=== PATIENT | male | born 1965 | race American Indian/Alaskan Native ===

== ENCOUNTER 2019-01-13 09:49 | Emergency (ER) | payer MEDICARE ==
--- NOTE | 2019-01-13 10:15 | Emergency Department Report ---
ED Back Pain/Injury HPI - General Chief Complaint: Extremity Injury, Lower Stated Complaint: (L) LEG PAIN Time Seen by Provider: 01/13/19 10:08 Source: patient Limitations: No Limitations - History of Present Illness Initial Comments: low back pain, chronic now with tingling in L leg no numbness/weakness no bowel or bladder dysfunction no fevers Complaint: back pain -: Gradual, days(s) (2) Place: home Radiation: left leg Severity: moderate Severity scale (0 -10): 6 Quality: burning, aching Consistency: constant Improves With: immobilization Worsens With: movement Associated Symptoms: denies other symptoms - Related Data Allergies Allergy/AdvReac Type Severity Reaction Status Date / Time No Known Allergies Allergy Unverified 01/13/19 09:49 ED Review of Systems ROS: Stated complaint: (L) LEG PAIN Other details as noted in HPI Comment: All other systems reviewed and negative Musculoskeletal: back pain ED Past Medical Hx - Past Medical History liver transplant ED Back Pain Physical Exam - Exam General: Vital signs noted. No distress. Alert and acting appropriately. Back/Abdomen: Yes Perilumbar Tenderness, Yes Straight Leg Raise Pain (L), No Abdominal Tenderness, No Perithoracic Tenderness, No Sacroiliac Tenderness, No Flank Tenderness Neuro: Yes Normal Sensation, Yes Normal DTR's, Yes Normal Gait, No Motor Weakness ED Course Vital Signs 01/13/19 09:53 Temperature 97.5 F L Pulse Rate 85 Respiratory 18 Rate Blood Pressure 139/90 [Left] O2 Sat by Pulse 99 Oximetry ED Medical Decision Making - Medical Decision Making exam c/w sciatica no sign cord compression no suspicion for infectious source RX: Medrol, Naprosyn, Flexeril - Differential Diagnosis strain, sciatica, unlikely fx Critical care attestation.: If time is entered above; I have spent that time in minutes in the direct care of this critically ill patient, excluding procedure time. ED Disposition Clinical Impression: Left sciatic nerve pain Disposition: - TO HOME OR SELFCARE Is pt being admited?: No Condition: Good Instructions: Lumbar Radiculopathy (ED) Referrals: NAYELY RM MD [Staff Physician] - 3-5 Days Time of Disposition: 10:26
== END 2019-01-13 10:30 | disposition home or self-care (01) ==
LOC: ED 09:49
DX: M54.32 Sciatica, left side (principal)
CPT/HCPCS: 99282

== ENCOUNTER 2019-11-07 09:48 | Emergency (ER) | payer MEDICARE ==
[2019-11-07 09:55] VITALS: BP 130/86
[2019-11-07] MEDS ORDERED: HYDROcodone/ACETAMINOPHEN 5-325 MG TAB PO ONE (11:13)
--- NOTE | 2019-11-07 11:13 | Emergency Department Report ---
- General Chief complaint: Skin Rash Stated complaint: RT SIDE RASH Time Seen by Provider: 11/07/19 10:55 Source: patient Mode of arrival: Ambulatory Limitations: No Limitations - History of Present Illness Initial comments: 54-year-old -[place] female patient complains of painful right abdominal rash 4 days. Patient denies any fever/chills/sweats or spreading of rash to other areas. He describes the pain as burning and itching. He admits to having chickenpox as a child. He rates his pain as a 10/10 in severity and states it worsens with palpation -: Sudden Tetanus Up to Date: yes Severity: severe Severity scale (0 -10): 10 Quality: burning Improves with: none Worsens with: palpation Associated symptoms: denies other symptoms Treatments Prior to Arrival: none - Related Data Previous Rx's Medication Instructions Recorded Last Taken Type Acetaminophen/Codeine [Tylenol 1 tab PO Q6H PRN #12 tab 11/07/19 Unknown Rx /Codeine # 3 tab] valACYclovir [Valtrex] 1,000 mg PO Q8H 7 Days #42 tab 11/07/19 Unknown Rx Allergies Allergy/AdvReac Type Severity Reaction Status Date / Time No Known Allergies Allergy Unverified 01/13/19 09:49 Abscess Boil HPI - HPI Chief Complaint: Skin Rash Stated Complaint: RT SIDE RASH Time Seen by Provider: 11/07/19 10:55 Home Medications: Previous Rx's Medication Instructions Recorded Last Taken Type Acetaminophen/Codeine [Tylenol 1 tab PO Q6H PRN #12 tab 11/07/19 Unknown Rx /Codeine # 3 tab] valACYclovir [Valtrex] 1,000 mg PO Q8H 7 Days #42 tab 11/07/19 Unknown Rx Allergies/Adverse Reactions: Allergies Allergy/AdvReac Type Severity Reaction Status Date / Time No Known Allergies Allergy Unverified 01/13/19 09:49 ED Review of Systems ROS: Stated complaint: RT SIDE RASH Other details as noted in HPI Comment: All other systems reviewed and negative Skin: as per HPI ED Past Medical Hx - Past Medical History Hx Hypertension: Yes Hx Diabetes: Yes Additional medical history: liver transplant - Surgical History Hx Appendectomy: Yes Additional Surgical History: liver transplant - Social History Smoking Status: Current Every Day Smoker Substance Use Type: Marijuana - Medications Home Medications: Home Medications Medication Instructions Recorded Confirmed Last Taken Type Acetaminophen/Codeine [Tylenol 1 tab PO Q6H PRN #12 tab 11/07/19 Unknown Rx /Codeine # 3 tab] valACYclovir [Valtrex] 1,000 mg PO Q8H 7 Days #42 tab 11/07/19 Unknown Rx ED Physical Exam - General Limitations: No Limitations General appearance: alert, in no apparent distress - Head Head exam: Present: atraumatic, normocephalic - Eye Eye exam: Present: normal appearance. Absent: scleral icterus - Respiratory Respiratory exam: Present: normal lung sounds bilaterally. Absent: respiratory distress - Cardiovascular Cardiovascular Exam: Present: regular rate, normal rhythm. Absent: systolic murmur, diastolic murmur, rubs, gallop - Extremities Exam Extremities exam: Present: normal inspection - Neurological Exam Neurological exam: Present: alert, oriented X3 - Psychiatric Psychiatric exam: Present: normal affect, normal mood - Skin Skin exam: Present: warm, dry, intact, normal color, rash - Expanded Skin Exam Expanded 1 - Mild to moderate erythemic shingles rash noted with tenderness to palpation ED Course Vital Signs 11/07/19 09:54 Temperature 97.8 F Pulse Rate 78 Respiratory 16 Rate Blood Pressure 130/86 O2 Sat by Pulse 97 Oximetry ED Medical Decision Making - Medical Decision Making 54-year-old male presents with painful rash to his right torso for the past 4 days. Rash is consistent with shingles. Vitals are normal. Patient is stable for discharge home and follow-up with his primary care physician. Patient to discharge with valacyclovir and pain medication. Discussed very strict return precautions in great detail with patient who verbalizes understanding Critical care attestation.: If time is entered above; I have spent that time in minutes in the direct care of this critically ill patient, excluding procedure time. ED Disposition Clinical Impression: Shingles Qualifiers: Herpes zoster complications: without complications Qualified Code(s): B02.9 - Zoster without complications Disposition: TO HOME OR SELFCARE Is pt being admited?: No Condition: Stable Instructions: Herpes Zoster (ED) Prescriptions: Acetaminophen/Codeine [Tylenol /Codeine # 3 tab] 1 tab PO Q6H PRN #12 tab PRN Reason: Pain , Severe (7-10) valACYclovir [Valtrex] 1,000 mg PO Q8H 7 Days #42 tab Referrals: PRIMARY CARE, [Referring] - 3-5 Days
== END 2019-11-07 11:37 | disposition home or self-care (01) ==
LOC: ED 09:48
DX: B02.9 Zoster without complications (principal); I10 Essential (primary) hypertension; E11.9 Type 2 diabetes mellitus without complications; F17.200 Nicotine dependence, unspecified, uncomplicated; F12.10 Cannabis abuse, uncomplicated; Z90.49 Acquired absence of other specified parts of digestive tract; Z79.899 Other long term (current) drug therapy; Z94.4 Liver transplant status